=== PATIENT | male | born 1945 | race Caucasian/White ===

== ENCOUNTER 2017-02-04 10:35 | Day surgery (SDC) | payer MEDICARE, OTHER ==
[~2017-02-04 10:35] MED LIST: ACETAMINOPHEN 325 MG TABLET PO PRN; ACETYLCHOLINE CHLORIDE 20 DROP KIT IO PRN; BUPIVACAINE HCL/PF 30 ML VIAL IJ PRN; CYCLOPENTOLATE HCL 20 DROP BTL RIGHTEYE PRN; DEXTROSE 5%-0.5 NORMAL SALINE 1,000 ML IV PRN; EPINEPHrine 1 MG/ML AMPUL IO PRN; HYALURONATE SODIUM 0.4 ML DISP.SYRIN IO PRN; LIDOCAINE HCL/PF 200 MG/5 ML AMPUL TP PRN; LIDOCAINE HCL/PF 5 ML VIAL IO PRN; NORMAL SALINE 3 ML BOX IV PRN; TETRACAINE HCL 150 DROP BTL OP PRN
--- OUTSIDE RECORDS SUMMARY | 2017-02-04 10:40 | XMS REPORT | Continuity of Care Document ---
:1945 Author Organization [facility] ([facility]) [place] [address] Phone [phone] Care Team Providers Name Role Phone Unavailable Primary Care Provider Unavailable Source Comments This disclosure is being made pursuant to the Care Everywhere program, applicable federal and state laws, and may not contain all informaitonavailable regarding this patient.[facility] ([facility]) Active Allergies and Adverse Reactions Not on File Current Medications Not on file Active Problems Not on file Social History Tobacco Use Types Packs/Day Years Used Date Never Assessed Plan of Care Health Maintenance Due Date Last Done Comments HCV Screening 1945 Hepatitis B Vaccine (1 of 3 - Primary Series) 1945 Tdap Vaccine 12/19/1955 Lipid Disorder Screening 1962 Td Vaccine 1962 Colonoscopy 1994 Prostate Cancer Screening 1994 Zoster Vaccine 2004 Pneumococcal Vaccine (1 of 2 - PCV13) 2009 Influenza Vaccine: Seasonal (#1) 03/26/2016 Results from Last 3 Months Not on file
[2017-02-04] MEDS: TROPICAMIDE 150 DROP BTL RIGHTEYE PRN ×3 (11:28→12:36)
[2017-02-04] MEDS: PHENYLEPHRINE HCL 50 DROP BTL RIGHTEYE PRN ×3 (11:28→12:36)
[2017-02-04] MEDS ORDERED: RINGERS SOLUTION,LACTATED 1,000 ML IV ONE (12:30)
[2017-02-04] MEDS: HYALURONATE SODIUM 0.85 ML DISP.SYRIN IO PRN ×2 (13:58→14:10)
[2017-02-04 15:24] VITALS: BP 142/69
== END 2017-02-04 10:36 | disposition home or self-care (01) ==
LOC: AMB 10:35
PROVIDERS: ATTEND Ophthalmology
PROC: 08RJ3JZ Replacement of Right Lens with Synthetic Substitute, Percutaneous Approach (ICD-10-PCS; principal; 2017-02-04 12:05)
DX: H26.9 Unspecified cataract (principal); E11.22 Type 2 diabetes mellitus with diabetic chronic kidney disease; N18.3 Chronic kidney disease, stage 3 (moderate); J44.9 Chronic obstructive pulmonary disease, unspecified; K74.60 Unspecified cirrhosis of liver; Z87.891 Personal history of nicotine dependence; Z68.41 Body mass index [BMI] 40.0-44.9, adult

== ENCOUNTER 2017-03-04 09:29 | Day surgery (SDC) | payer MEDICARE, OTHER ==
[~2017-03-04 09:29] MED LIST changes: +CYCLOPENTOLATE HCL 20 DROP BTL LEFTEYE PRN; -CYCLOPENTOLATE HCL 20 DROP BTL RIGHTEYE PRN; +HYALURONATE SODIUM 0.85 ML DISP.SYRIN IO PRN
[2017-03-04] MEDS: PHENYLEPHRINE HCL 50 DROP BTL LEFTEYE PRN ×3 (09:58→10:33)
[2017-03-04] MEDS: TROPICAMIDE 150 DROP BTL LEFTEYE PRN ×3 (09:58→10:33)
[2017-03-04] MEDS ORDERED: RINGERS SOLUTION,LACTATED 1,000 ML IV ONE (10:10)
[2017-03-04 13:28] VITALS: BP 138/71
== END 2017-03-04 09:30 | disposition home or self-care (01) ==
LOC: AMB 09:29
PROVIDERS: ATTEND Ophthalmology
PROC: 08RK3JZ Replacement of Left Lens with Synthetic Substitute, Percutaneous Approach (ICD-10-PCS; principal; 2017-03-04 11:00)
DX: H26.9 Unspecified cataract (principal); E11.22 Type 2 diabetes mellitus with diabetic chronic kidney disease; N18.4 Chronic kidney disease, stage 4 (severe); J44.9 Chronic obstructive pulmonary disease, unspecified; K74.60 Unspecified cirrhosis of liver; Z87.891 Personal history of nicotine dependence; Z68.41 Body mass index [BMI] 40.0-44.9, adult

== ENCOUNTER 2017-06-14 08:38 | Day surgery (SDC) | payer MEDICARE, OTHER ==
[~2017-06-14 08:38] MED LIST changes: -ACETAMINOPHEN 325 MG TABLET PO PRN; -ACETYLCHOLINE CHLORIDE 20 DROP KIT IO PRN; -BUPIVACAINE HCL/PF 30 ML VIAL IJ PRN; -CYCLOPENTOLATE HCL 20 DROP BTL LEFTEYE PRN; -DEXTROSE 5%-0.5 NORMAL SALINE 1,000 ML IV PRN; -EPINEPHrine 1 MG/ML AMPUL IO PRN; -HYALURONATE SODIUM 0.4 ML DISP.SYRIN IO PRN; -HYALURONATE SODIUM 0.85 ML DISP.SYRIN IO PRN; -LIDOCAINE HCL/PF 200 MG/5 ML AMPUL TP PRN; -LIDOCAINE HCL/PF 5 ML VIAL IO PRN; -NORMAL SALINE 3 ML BOX IV PRN; +RINGER'S SOLUTION,LACTATED 1,000 ML IV PRN; -TETRACAINE HCL 150 DROP BTL OP PRN
[2017-06-14] MEDS ORDERED: RINGER'S SOLUTION,LACTATED 1,000 ML IV ONE (09:40)
--- NOTE | 2017-06-14 11:31 | OR ---
Operative Report - Dictated Report Narrative: Date: 06/14/2017 Preop dx: Screen for colon cancer Postop dx: Polyp at 60 cm Procedure: Total colonoscopy with biopsy of polyp at 60 cm with cold forceps. Staff surgeon: Percy Schmitt MD Anesthesia: MAC per TERRAZZO JOURNEYMAN EBL: minimal Specimen: polyp at 60 cm. Description: After informed consent and appropriate sedation the patient was placed in the left lateral decubitus position. A flexible fiberoptic video colonoscope was introduced and advanced under direct vision without difficulty to the cecum. The usual landmarks were identified. Preparation was fiar and excellent views were obtained. The findings were of a normal cecum, ascending colon, hepatic flexure, transverse colon, splenic flexure. A polyp at 60 cm was biopsied with cold forceps. The remainder of the polyp was destroyed with electrocautery. The sigmoid colon and rectum were normal. The mucosal color, vasculature, and texture were normal throughout. No suspicious masses were seen. The patient tolerated the procedure well without apparent complications and was discharged from the endoscopy suite in stable condition.
[2017-06-14 12:27] VITALS: BP 142/80
== END 2017-06-14 08:39 | disposition home or self-care (01) ==
LOC: AMB 08:38
PROVIDERS: ATTEND Specialist
PROC: 0D5E8ZZ Destruction of Large Intestine, Via Natural or Artificial Opening Endoscopic (ICD-10-PCS; principal; 2017-06-14 09:40)
DX: Z12.11 Encounter for screening for malignant neoplasm of colon (principal); K63.5 Polyp of colon; E11.22 Type 2 diabetes mellitus with diabetic chronic kidney disease; N18.5 Chronic kidney disease, stage 5; J44.9 Chronic obstructive pulmonary disease, unspecified; Z68.41 Body mass index [BMI] 40.0-44.9, adult; Z87.891 Personal history of nicotine dependence; Z80.0 Family history of malignant neoplasm of digestive organs

== ENCOUNTER 2017-10-24 12:01 | Inpatient (IN) | payer MEDICARE, OTHER ==
--- NOTE | 2017-10-24 12:54 | ERNOTE ---
Medical Problem HPI - Narrative Date of Service: 10/24/17 - General Chief Complaint: General Assessment Time Seen by Provider: 10/24/17 12:21 Source: patient, family Exam Limitations: dementia - Immun/Allergies/Home Medications Allergies/Adverse Reactions: Allergies No Known Allergies Allergy (Verified 10/24/17 12:08) Home Medications: HOME MEDICATIONS Furosemide [Lasix] 80 mg PO DAILY 05/21/16 [Last Taken Unknown] Glimepiride [Amaryl] 1 mg PO DAILY 05/21/16 [Last Taken Unknown] Propranolol HCl 40 mg PO BID 05/21/16 [Last Taken 02/04/17 08:00] Spironolactone [Aldactone] 100 mg PO DAILY 05/21/16 [Last Taken Unknown] Albuterol Sulfate 2.5 mg IH QID 05/23/16 [Last Taken Unknown] Albuterol Sulfate [Proair Hfa] 1 puff IH Q4H PRN 02/01/17 [Last Taken Unknown] Blood-Glucose Meter [Blood Glucose Monitoring] 1 each MC DAILY 02/01/17 [Last Taken Unknown] Potassium Chloride [Klor-Con M20] 20 meq PO DAILY 02/01/17 [Last Taken Unknown] Sorafenib Tosylate [Nexavar] 200 mg PO BID 10/24/17 [Last Taken Unknown] - History of Present History Narrative: Pt. comes in with three week history of SOB, cough, and clear sputum. Pt. states that he went to his PCP two weeks ago and was started on abx without relief. Pt. does state that he has had increase in swelling recently as well. Pt. has some short term memory loss so he is a poor istorian and he is also undergoing treatment for liver cancer. Timing: getting worse Severity: moderate Modifying Factors - (Improves): Present: other - denies Modifying Factors - (Worsens): Present: other - denies Review of Systems - Review of Systems Constitutional: Present: weakness, fatigue, malaise. Absent: fever, chills, decreased activity level EYE: Present: no symptoms reported ENT: Present: no symptoms reported. Absent: nose congestion, nasal drainage, throat swelling Respiratory: Present: shortness of breath, cough, wheezing Cardiology: Present: chest pain - mid chest to R side inc R shoulder, edema - BLE. Absent: palpitations Gastrointestinal/Abdominal: Present: abdominal pain - RUQ normal for pt.. Absent: nausea, vomiting, diarrhea Genitourinary: Present: no symptoms reported. Absent: frequency, decreased urinary output Musculoskeletal: Present: no symptoms reported. Absent: back pain, neck pain, joint pain Skin: Present: no symptoms reported. Absent: rash, change in hair/nails Neurological: Present: no symptoms reported. Absent: headache, dizziness/light- headedness, numbness, tingling All Other Systems: All systems neg except as marked - Patient's Past Medical History Patient History - Medical: Diabetes Type 2, Other - Liver CA Patient History - Cardiac/Respiratory: COPD, Other Patient History - Cancer: Liver, Skin Patient History - Surgical Procedures: Cataracts, Colonoscopy, Other Patient History - Other: Chronic Steroid Therapy - Family History Mother Family History - Medical: , No pertinent hx Family History - Cardiac/Respiratory: No pertinent hx Family History - Cancer: Lung Father Family History - Medical: , No pertinent hx Family History - Cardiac/Respiratory: Myocardial Infarction Family History - Cancer: No pertinent family hx Brother Family History - Medical: , No pertinent hx Family History - Cardiac/Respiratory: Aneurysm Family History - Cancer: No pertinent family hx Sister Family History - Medical: , No pertinent hx Family History - Cardiac/Respiratory: No pertinent hx Family History - Cancer: Brain - Social History Living Situations: home Abuse History: No History of abuse Psych History: No pertinent hx Alcohol Use: none Drug Use: none Physical Exam - Physical Exam General Appearance: Present: wd/wn, alert, no apparent distress Head Exam: Present: normal inspection, no evidence of injury, no tenderness w palpation Eye Exam: Normal inspection: bilateral Ears, Nose, Throat: Present: normal ENT inspection, normal pharynx Neck: Present: normal inspection, nontender, supple, full range of motion. Absent: lymphadenopathy (R), lymphadenopathy (L) Respiratory: Present: no respiratory distress, decreased breath sounds, crackles - fine R lung LLL coarse FERNY Cardiovascular/Chest: Present: regular rate, rhythm, systolic murmur - aortic holosystolic Gastrointestinal/Abdominal: Present: no organomegaly, tenderness - RUQ, abnormal bowel sounds - rare, distended, hepatomegaly. Absent: guarding, rebound, mass Back Exam: Present: normal inspection, normal range of motion, no CVA tenderness , no vertebral tenderness Extremity Exam: Present: normal inspection, non-tender, normal range of motion, extremity edema - +4 pitting BLE to thighs Neurological Exam: Present: alert, oriented, normal mood/affect, no motor/ sensory deficits, other - STML mild Skin Exam: Present: warm/dry, jaundice, pallor. Absent: skin rash ED Progress - Date and Time Seen: Date and Time: 10/24/17 13:[address] Arias, he agrees to admit for obs. - Results and Orders Patient's Lab Results:: I have reviewed the patient's lab results. - Vital Signs Patient's Vital Signs:: I have reviewed the patient's vital signs. Vital Signs: Vital Signs 10/24/17 12:04 Temperature 36.0 C L Pulse Rate 79 Respiratory 12 Rate Blood Pressure 140/82 O2 Sat by Pulse 93 Oximetry - EKG EKG: LVH, other - SR with L axis deviation no acute ST abnormality EKG read: Interp. by me - X-Ray X-Ray #1 X-Ray: chest Interpretation: Reviewed by me X-ray Comments: Chest PA Lateral * Hypoinflated lung volumes. Bibasilar opacities noted. No significant vascular congestion suggested. No pneumothorax or pleural fluid collections. Mild enlargement of the cardiac silhouette noted. Mild tortuosity of the thoracic aorta noted, with overlying atherosclerotic vascular calcifications. Overall stable. Trachea is in normal position. Bones show degenerative changes of the spine. IMPRESSION: 1. Hypoinflated lungs with bibasilar opacities, most likely atelectasis although multifocal pneumonia should be considered. 2. Recommend follow-up radiographic evaluation in 6-8 weeks to document resolution, as potential nodule/neoplasm cannot be entirely ruled out. 3. Additional comments are as above. Electronically signed by Lele Schwab M.D.. Lele Schwab MD - Progress/Reassessment Chief Complaint: General Assessment Departure Clinical Impression: Hepatic encephalopathy, Multifocal pneumonia, Renal insufficiency CHF (congestive heart failure) Qualifiers: Congestive heart failure type: unspecified Congestive heart failure chronicity : acute on chronic Qualified Code(s): I50.9 - Heart failure, unspecified Liver malignancy Qualifiers: Liver malignancy type: unspecified liver malignancy Qualified Code(s): C22.9 - Malignant neoplasm of liver, not specified as primary or secondary Liver failure Qualifiers: Liver failure chronicity: acute Hepatic coma status: without hepatic coma Qualified Code(s): K72.00 - Acute and subacute hepatic failure without coma - Departure Disposition: Still a patient Condition: Serious
[2017-10-24 13:14] LABS: Hematocrit 46.5 % (42.0-52.0); Hemoglobin 16.5 gm/dL (13.5-18.0); Mean Cell Volume 94.5 fl (78-100); Mean Corpuscular Hemoglobin 33.5 pg (27-31); Mean Corpuscular Hgb Conc 35.5 g/dl (32-36); Mean Platelet Volume 11.1 fl (6.0-9.5); Neutrophil % 76.8 % (42-75.0); Platelet Count 197 K/mm3 (150-450); Red Blood Count 4.92 M/mm3 (4.7-6.0); White Blood Count 13.1 K/mm3 (4.0-10.5)
[2017-10-24 13:25] LABS: ALT 221 U/L (19-67); AST 343 U/L (0-48); Alkaline Phosphatase * 601 U/L (50-170); Anion Gap 16.2 mmol/L (6.8-13.8); BNP * 1233 pg/mL (5-350); BUN/Creatinine Ratio 24.8 (9.0-21.6); Bilirubin, Total 2.2 mg/dL (0.0-1.1); Blood Urea Nitrogen 37 mg/dL (6-23); Ca. Corrected For Albumin 11.2 mg/dL (8.4-10.2); Calcium * 9.9 mg/dL (7.9-10.9); Carbon Dioxide 26.6 mmol/L (24-32.6); Chloride 98 mmol/L (97-106); Glucose * 134 mg/dL (70-110); Magnesium 1.7 mg/dL (1.2-2.8); Phosphorus 3.3 mg/dL (2.2-4.2); Potassium 4.8 mmol/L (3.4-4.6); Sodium 136 mmol/L (132-142); Total Protein 8.5 gm/dL (6.2-8.2)
[2017-10-24 13:26] LABS: Troponin I Less than 0.017 ng/ml (0.00-0.10)
[2017-10-24] MEDS ORDERED: FUROSEMIDE 10 MG/ML VIAL IV ONE (13:29)
[2017-10-24] MEDS ORDERED: AZITHROMYCIN 250 MG TABLET PO ONE (13:32)
[2017-10-24] MEDS ORDERED: FUROSEMIDE 10 MG/ML VIAL ONE (13:42)
[2017-10-24] MEDS ORDERED: AZITHROMYCIN 250 MG TABLET ONE (13:42)
[2017-10-24] MEDS ORDERED: ONDANSETRON HCL/PF 2 MG/ML VIAL IV ONE (13:51)
[2017-10-24] MEDS ORDERED: MORPHINE SULFATE 2 MG/ML DISP.SYRIN IV ONE (13:51)
[2017-10-24] MEDS ORDERED: ONDANSETRON HCL/PF 2 MG/ML VIAL ONE (13:53)
[2017-10-24] MEDS ORDERED: MORPHINE SULFATE 2 MG/ML DISP.SYRIN ONE (13:53)
[2017-10-24] MEDS ORDERED: LACTULOSE 10 G/15 ML BTL PO ONE (14:00)
[2017-10-24] MEDS: LEVOFLOXACIN IN DEXTROSE 5 % 750 MG/150 ML BAG IV SCH (15:48)
[2017-10-24] MEDS ORDERED: ALBUTEROL SULFATE 2.5 MG/0.5 ML VIAL.NEB IH PRN (18:25)
[2017-10-24] MEDS ORDERED: ALBUTEROL SULFATE/IPRATROPIUM 3 ML NEBU IH SCH (18:30)
[2017-10-24] MEDS: ALBUTEROL SULFATE/IPRATROPIUM 3 ML NEBU IH SCH (19:09)
--- NOTE | 2017-10-24 19:56 | PN ---
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 Patient has difficulty in lying back. CXR shows hyperinflation of the lungs and basilar opacities c/w atelectasis/pneumonia. WBC 13.1, BUN/CR 37/1.49, AST 343, ALT 222, ALK PHOS 601 TB 2.2. Patient admitted with a diagnosis of possible pneumonia and her lung exam was basically clear with diminished breath sounds at the bases. D/D: Includes possible extension of liver cancer. Full H&P to be done by Cody Barboza REGULATOR PIN INSERTER[hospitalist].
[2017-10-24] MEDS: oxyCODONE HCL 5 MG TABLET PO PRN (20:30)
[2017-10-24] MEDS: LACTULOSE 10 G/15 ML BTL PO SCH (20:34)
--- NOTE | 2017-10-24 20:52 | HP ---
Chief Complaint - Chief Complaint Date of Service: 10/24/17 Time of Service: 20:52 Chief Complaint: Abdominal pain, liver cancer History of Present Illness: 71 years old white male adm to the hospital with reports of abdominal pain, cough and shortness of breath. PMH significant for Diabetes, morbid obesity,COPD , and Hepatocellular carcinoma Seen on 06/27/17 CT ABD: numerous small nodules and ill defined vague hypodensities within a nodular and coarse appearing liver with metastic disease or multifocal HCC is not excluded. Cirrhosis secondary to alcohol abuse and HORTON. pt is a poor historian and information obtained from his . Per pt he has been having cough, abdominal pain and shortness of breath that has gotten progressively worst over the past 2-3 days. He has much difficulty laying back and have been even siting up sleeping. CXR:shows hyperinflation of the lungs and basilar opacities , most likely atelectasis vs pneumonia.F/U 6-8 weeks as potential nodule/neoplasm cannot be entirely rules out. In ER WBC 13.1, Bun/Cre 37/1.49 which is around baseline on previous lab Bun/cre 36/1.68, AST/ALT 90/68 respectively on this adm AST 343, ALT 222, ALK PHOS 601 TB 2.2.Patient admitted with a diagnosis of possible pneumonia and his lung exam was basically clear with diminished breath sounds at the bases. D/ D: Includes possible extension of liver cancer. - Patient's Past Medical History Patient History - Medical: Diabetes Type 2, Liver Disease - cirrhosis, Renal Disease - CKD stage IV, Patient History - Cardiac/Respiratory: COPD, Hypertension Patient History - Cancer: Liver - hepatocellular carcinoma, Skin Patient History - Surgical Procedures: Cataracts, Colonoscopy, Other, Orthopedic - Knee arthroscopy, shoulder rotator cuff repair Patient History - Other: None - Family History Mother Family History - Medical: , No pertinent hx Family History - Cardiac/Respiratory: No pertinent hx Family History - Cancer: Lung Father Family History - Medical: , No pertinent hx Family History - Cardiac/Respiratory: Myocardial Infarction Family History - Cancer: No pertinent family hx Brother Family History - Medical: , No pertinent hx Family History - Cardiac/Respiratory: Aneurysm, Myocardial Infarction Family History - Cancer: No pertinent family hx Sister Family History - Medical: , No pertinent hx Family History - Cardiac/Respiratory: No pertinent hx Family History - Cancer: Brain - Social History Living Situations: spouse Abuse History: No History of abuse Psych History: No pertinent hx Smoking Status: Former smoker Have you smoked in the past 12 months: No Alcohol Use: other Drug Use: none Review Of Systems (GEN) - Review of Systems Generalized/Overall Review: Present: Weakness EENTM: Present: No Symptoms Reported Respiratory: Present: Cough, Shortness of Breath Cardiac: Present: Edema Abdominal: Present: Abdominal Pain Genitourinary: Present: No Symptoms Reported Musculoskeletal: Present: No Symptoms Reported Neurological: Present: Weakness Skin: Present: Dryness Endocrine: Present: No Symptoms Reported Allergies/Adverse Reactions: Allergies Allergy/AdvReac Type Severity Reaction Status Date / Time No Known Allergies Allergy Verified 10/24/17 16:42 Home Medications: HOME MEDICATIONS Furosemide [Lasix] 80 mg PO DAILY 05/21/16 [Last Taken 10/24/17] Glimepiride [Amaryl] 1 mg PO DAILY 05/21/16 [Last Taken 10/24/17] Propranolol HCl 40 mg PO BID 05/21/16 [Last Taken 10/24/17] Spironolactone [Aldactone] 100 mg PO DAILY 05/21/16 [Last Taken 10/24/17] Albuterol Sulfate 2.5 mg IH QID 05/23/16 [Last Taken 10/24/17] Albuterol Sulfate [Proair Hfa] 1 puff IH Q4H PRN 02/01/17 [Last Taken 10/24/17] Blood-Glucose Meter [Blood Glucose Monitoring] 1 each MC DAILY 02/01/17 [Last Taken Unknown] Aspirin [Aspirin EC] 81 mg PO HS 10/24/17 [Last Taken 10/23/17] Potassium Stabalizer 10 mg PO DAILY 10/24/17 [Last Taken 10/24/17] Sorafenib Tosylate [Nexavar] 200 mg PO BID 10/24/17 [Last Taken 10/24/17] Exam - Exam Vital Signs: Vital Signs - Last Taken Temp 36.4 C L 10/24/17 18:43 Pulse 71 10/24/17 19:18 Resp 18 10/24/17 19:18 BP 160/83 10/24/17 18:43 Pulse Ox 92 10/24/17 19:09 Constitutional: Present: Alert, Cooperative, No distress, Looks Older than stated age ENT Exam: Present: hard of hearing Eye Exam: bilateral eye: normal inspection Neck: Present: full range of motion Back Exam: Present: normal inspection Breasts: Present: Exam deferred Respiratory: Present: chest non-tender, no accessory muscle use, decreased breath sounds, rhonchi, wheezing Cardiovascular/Chest: Present: normal peripheral pulses, regular rate, rhythm, no chest tenderness, no gallop, no JVD, edema Peripheral Pulses: dorsalis-pedis (R): 2+, dorsalis-pedis (L): 2+ Abdomen: Present: soft, no rebound tenderness, distended, hypoactive /Rectal: Present: Exam deferred Extremity: Present: non-tender, no calf tenderness, lower extremity edema, pedal edema, slow capillary refill, swelling Skin Exam: Present: normal color, warm/dry Neurologic: Present: oriented x 3 Appearance: Present: disheveled, impaired insight, impaired recent memory Eye contact: Present: good eye contact, normal speech Thoughts: Present: no apparent hallucination Diagnostic Studies: Laboratory Results WBC 13.1 K/mm3 (4.0-10.5) H 10/24/17 12:57 RBC 4.92 M/mm3 (4.7-6.0) 10/24/17 12:57 Hgb 16.5 gm/dL (13.5-18.0) 10/24/17 12:57 Hct 46.5 % (42.0-52.0) 10/24/17 12:57 MCV 94.5 fl (78-100) 10/24/17 12:57 MCH 33.5 pg (27-31) H 10/24/17 12:57 MCHC 35.5 g/dl (32-36) 10/24/17 12:57 RDW 16.0 % (11.5-14.0) H 10/24/17 12:57 Plt Count 197 K/mm3 (150-450) 10/24/17 12:57 MPV 11.1 fl (6.0-9.5) H 10/24/17 12:57 Immature Gran % (Auto) 0.50 % (0.001-0.429) H 10/24/17 12:57 Immature Gran # (Auto) 0.07 K/mm3 (0.000-0.0310) H 10/24/17 12:57 Neutrophils % 76.8 % (42-75.0) H 10/24/17 12:57 Lymphocytes % 12.6 % (20-51) L 10/24/17 12:57 Monocytes % 9.2 % (0.0-9) H 10/24/17 12:57 Eosinophils % 0.5 % (0.0-3.0) 10/24/17 12:57 Basophils % 0.4 % (0.0-1.0) 10/24/17 12:57 Nucleated RBC % 0.0 k/mm3 (0-1) 10/24/17 12:57 Neutrophils # 10.0 K/mm3 (1.3-6.0) H 10/24/17 12:57 Lymphocytes # 1.7 k/mm3 (1.5-3.5) 10/24/17 12:57 Monocytes # 1.2 k/mm3 (0.0-1.0) H 10/24/17 12:57 Eosinophils # 0.1 k/mm3 (0.0-0.7) 10/24/17 12:57 Absolute Basophils 0.1 k/mm3 (0.0-0.1) 10/24/17 12:57 Sodium 136 mmol/L (132-142) 10/24/17 12:57 Plasma Sodium 137 mmol/L (130-142) 10/24/17 12:57 Potassium 4.8 mmol/L (3.4-4.6) H 10/24/17 12:57 Chloride 98 mmol/L (97-106) 10/24/17 12:57 Carbon Dioxide 26.6 mmol/L (24-32.6) 10/24/17 12:57 Anion Gap 16.2 mmol/L (6.8-13.8) H 10/24/17 12:57 BUN 37 mg/dL (6-23) H 10/24/17 12:57 Creatinine 1.49 mg/dL (0.4-1.4) H 10/24/17 12:57 Est GFR (Non-Af Amer) 49 mL/min (60-130) L 10/24/17 12:57 BUN/Creatinine Ratio 24.8 (9.0-21.6) H 10/24/17 12:57 Random Glucose 134 mg/dL (70-110) H 10/24/17 12:57 Calcium 9.9 mg/dL (7.9-10.9) 10/24/17 12:57 Calcium Adj for Albumin 11.2 mg/dL (8.4-10.2) H 10/24/17 12:57 Phosphorus 3.3 mg/dL (2.2-4.2) 10/24/17 12:57 Magnesium 1.7 mg/dL (1.2-2.8) 10/24/17 12:57 Total Bilirubin 2.2 mg/dL (0.0-1.1) H 10/24/17 12:57 AST 343 U/L (0-48) H 10/24/17 12:57 ALT 221 U/L (19-67) H 10/24/17 12:57 Alkaline Phosphatase 601 U/L (50-170) H 10/24/17 12:57 Ammonia 64.0 mcmol/L (11-35) H 10/24/17 12:57 Troponin I Less than 0.017 ng/ml (0.00-0.10) 10/24/17 12:57 B-Natriuretic Peptide 1233 pg/mL (5-350) H 10/24/17 12:57 Total Protein 8.5 gm/dL (6.2-8.2) H 10/24/17 12:57 Albumin 2.0 gm/dl (3.4-5.0) L 10/24/17 12:57 Influenza Type A Ag Negative (NEGATIVE) 10/24/17 12:54 Influenza Type B Ag Negative (NEGATIVE) 10/24/17 12:54 CXR: Hypoinflated lungs with bibasilar opacities, most likely atelectasis although multifocal pneumonia should be considered. F/U 6-8 weeks as potential nodule/neoplasm cannot be entirely rules out. Assessment/Plan - Narrative Narrative: ? Pneumonia CXR:Hypoinflated lungs with bibasilar opacities, most likely atelectasis although multifocal pneumonia should be considered. F/U 6-8 weeks as potential nodule/neoplasm cannot be entirely rules out. pt with history of liver cancer possible due the distended abdomen pushing up on the lung or an extension of his liver cancer. Continue renal dose of Levaquin 750mg Q48hr continue with neb treatment influenza A & B negative On adm WBC 13.1 Procalcitonin, Pneumonia and legionella pending Hepatocellular carcinoma (HCC) Pt is been followed by cyber transport systems specialist/ oncologist in [place] Continue with home dose of Nexavar 200mg, pt may take his own medication Cirrhosis of the Liver On adm ALT/AST---> 221/343, pt LFT have been abnormal since 01/2017 Total bili 2.2, Ammonia 64 and will continue to monitor Lactulose 30mg x1 given in the ER, will continue with home dose Lasix 20mg x1 given in ER Continue with home dose of Inderal 40mg BID and Aldactone 100mg daily. CHF Bilateral LE +4 pitting edema from foot up to thigh BNP 1233 Lasix 20mg x1 given in ER CKD stage IV on adm Bun/Cre 37/1.49 on previous labs Bun/Cre 36/1.68 Code status:DNR VTE ppx:SCd and ambulate with assist Time 48 minutes and case discussed with Dr Baeza - Assessment/Plan (1) Hepatic encephalopathy Problem: Chronic (2) Liver failure Problem: Acute Qualifiers: Liver failure chronicity: acute Hepatic coma status: without hepatic coma Qualified Code(s): K72.00 - Acute and subacute hepatic failure without coma (3) Liver malignancy Problem: Chronic Qualifiers: Liver malignancy type: unspecified liver malignancy Qualified Code(s): C22.9 - Malignant neoplasm of liver, not specified as primary or secondary (4) Multifocal pneumonia Problem: Acute (5) Renal insufficiency Problem: Acute (6) CKD (chronic kidney disease) Problem: Chronic
[2017-10-24] MEDS ORDERED: NEXAVAR 200 MG PO SCH (21:00)
[2017-10-24] MEDS ORDERED: SORAFENIB TOSYLATE 200 MG PO SCH (21:00)
[2017-10-24] MEDS: PROPRANOLOL HCL 20 MG TABLET PO SCH (21:49)
[2017-10-25] MEDS: oxyCODONE HCL 5 MG TABLET PO PRN ×6 (00:34→23:41)
[2017-10-25 05:15] LABS: Prothrombin Time (Patient) 11.2 Seconds (9.0-11.0)
[2017-10-25 05:18] LABS: INR 1.12 INR (0.90-1.10)
[2017-10-25 05:25] LABS: Albumin * 1.9 gm/dl (3.4-5.0); Anion Gap 11.5 mmol/L (6.8-13.8); BUN/Creatinine Ratio 23.5 (9.0-21.6); Bilirubin, Total 2.1 mg/dL (0.0-1.1); Ca. Corrected For Albumin 10.9 mg/dL (8.4-10.2); Calcium * 9.5 mg/dL (7.9-10.9); Carbon Dioxide 30.7 mmol/L (24-32.6); Potassium 5.2 mmol/L (3.4-4.6); Total Protein 8.5 gm/dL (6.2-8.2)
[2017-10-25] MEDS: ALBUTEROL SULFATE/IPRATROPIUM 3 ML NEBU IH SCH ×4 (06:35→19:16)
[2017-10-25] MEDS: LACTULOSE 10 G/15 ML BTL PO SCH ×3 (08:44→17:45)
[2017-10-25] MEDS: PROPRANOLOL HCL 20 MG TABLET PO SCH ×2 (08:47→20:37)
[2017-10-25] MEDS ORDERED: FUROSEMIDE 20 MG TABLET PO SCH (09:00)
[2017-10-25] MEDS: SORAFENIB TOSYLATE 200 MG PO SCH ×2 (10:19→19:26)
[2017-10-25] MEDS: ONDANSETRON HCL/PF 2 MG/ML VIAL IV PRN ×2 (10:22→17:48)
[2017-10-25] MEDS ORDERED: SPIRONOLACTONE 100 MG TABLET PO SCH (11:00)
[2017-10-25] MEDS: NORMAL SALINE 1,000 ML IV PRN ×2 (11:16→21:38)
[2017-10-25] MEDS: ENOXAPARIN SODIUM 40 MG/0.4 ML SYRG SC SCH (14:59)
--- NOTE | 2017-10-25 22:11 | PN ---
Subjective - Date and Time Seen Date: 10/25/17 Time: 22:10 Subjective Narrative: Patient was seen no acute distress, reports nausea. Objective - Review of Systems Generalized/Overall Review: Reports: No Symptoms Reported EENTM: Reports: No Symptoms Reported Respiratory: Reports: Cough Cardiac: Reports: No Symptoms Reported Abdominal: Reports: Nausea Genitourinary Symptoms: Reports: No Symptoms Reported Musculoskeletal Complaints: Reports: No Symptoms Reported Neurological: Reports: No Symptoms Reported Skin: Reports: No Symptoms Reported Endocrine: Reports: No Symptoms Reported - Vitals Vitals: Last Vital Signs Temp 37 C 10/25/17 18:00 Pulse 89 10/25/17 20:37 Resp 18 10/25/17 19:26 BP 148/75 10/25/17 20:37 Pulse Ox 92 10/25/17 18:00 - Abnormal Lab Findings Abnormal Lab Findings: Abnormal Lab Results 10/25/17 10/25/17 10/25/17 Range/Units 02:59 05:03 05:03 PT 11.2 H (9.0-11.0) Seconds INR (Anticoag Therapy) 1.12 H (0.90-1.10) INR Potassium 5.2 H (3.4-4.6) mmol/L BUN 43 H (6-23) mg/dL Creatinine 1.83 H (0.4-1.4) mg/dL Est GFR (Non-Af Amer) 39 L D (60-130) mL/min BUN/Creatinine Ratio 23.5 H (9.0-21.6) Random Glucose 128 H (70-110) mg/dL Calcium Adj for Albumin 10.9 H (8.4-10.2) mg/dL Total Bilirubin 2.1 H (0.0-1.1) mg/dL AST 533 H (0-48) U/L ALT 280 H (19-67) U/L Alkaline Phosphatase 556 H (50-170) U/L Total Protein 8.5 H (6.2-8.2) gm/dL Albumin 1.9 L (3.4-5.0) gm/dl Procalcitonin 0.96 H (0.05-0.50) ng/mL - Exam Constitutional: Present: Cooperative, No distress, Morbidly obese ENT Exam: Present: hard of hearing Neck: Present: full range of motion Respiratory: Present: chest non-tender, no respiratory distress, no accessory muscle use, rhonchi Cardiovascular/Chest: Present: normal peripheral pulses, regular rate, rhythm, no chest tenderness Abdomen: Present: Normal bowel sounds, soft, nontender, negative Balderas sign, distended Extremity: Present: normal range of motion, non-tender, normal inspection, no calf tenderness, lower extremity edema, slow capillary refill, swelling Skin Exam: Present: warm/dry Neurologic: Present: alert, normal mood/affect Appearance: Present: disheveled, impaired insight Eye contact: Present: cooperative Thoughts: Present: no apparent hallucination Assessment/Plan Plan Narrative: Cirrhosis of the Liver On adm ALT/AST---> 221/343, since adm it has increased significantly AST/ALT/ Alk Phos--->533/280/556 respectively. pt LFT have been abnormal since 01/2017 Total bili 2.2, Ammonia 64 --->17 Lactulose 20mg TID Continue with home dose of Inderal 40mg BID and Aldactone 100mg daily. CHF Swelling improving Bilateral LE +4 pitting edema from foot up to thigh BNP 1233 Lasix 20mg x1 given in ER Pneumonia CXR:Hypoinflated lungs with bibasilar opacities, most likely atelectasis although multifocal pneumonia should be considered. F/U 6-8 weeks as potential nodule/neoplasm cannot be entirely rules out. pt with history of liver cancer possible due the distended abdomen pushing up on the lung or an extension of his liver cancer. Continue renal dose of Levaquin 750mg Q48hr continue with neb treatment influenza A & B negative WBC 13.1--->11.7 Procalcitonin 0.96 Pneumonia and legionella pending Hepatocellular carcinoma (HCC) Pt is been followed by comic book designer/ oncologist in [place] Dr Baeza spoke with Dr. gibson and Stop home dose of Nexavar 200mg Zofran for nausea CKD stage IV on adm Bun/Cre 37/1.49 on previous labs Bun/Cre 36/1.68--->43/1.83 NS @ 100ml/hr Code status:DNR VTE ppx:SCd and ambulate with assist Time 20 minutes and case discussed with Dr Baeza - Problems/Diagnosis (1) Hepatic encephalopathy Problem: Chronic (2) Liver failure Problem: Acute Qualifiers: Liver failure chronicity: acute Hepatic coma status: without hepatic coma Qualified Code(s): K72.00 - Acute and subacute hepatic failure without coma (3) Liver malignancy Problem: Chronic Qualifiers: Liver malignancy type: unspecified liver malignancy Qualified Code(s): C22.9 - Malignant neoplasm of liver, not specified as primary or secondary (4) Multifocal pneumonia Problem: Acute (5) Renal insufficiency Problem: Acute (6) CKD (chronic kidney disease) Problem: Chronic
[2017-10-26] MEDS: oxyCODONE HCL 5 MG TABLET PO PRN ×5 (03:48→21:37)
[2017-10-26 05:43] LABS: Hematocrit 44.9 % (42.0-52.0); Hemoglobin 15.4 gm/dL (13.5-18.0); Mean Cell Volume 97.6 fl (78-100); Mean Corpuscular Hemoglobin 33.5 pg (27-31); Mean Corpuscular Hgb Conc 34.3 g/dl (32-36); Neutrophil # 9.9 K/mm3 (1.3-6.0); Platelet Count 201 K/mm3 (150-450); Red Cell Distribution Width 16.2 % (11.5-14.0); White Blood Count 11.7 K/mm3 (4.0-10.5)
[2017-10-26 06:07] LABS: Albumin * 1.8 gm/dl (3.4-5.0); Anion Gap 14.1 mmol/L (6.8-13.8); BUN/Creatinine Ratio 23.8 (9.0-21.6); Bilirubin, Total 2.3 mg/dL (0.0-1.1); Ca. Corrected For Albumin 10.9 mg/dL (8.4-10.2); Calcium * 9.5 mg/dL (7.9-10.9); Carbon Dioxide 26.6 mmol/L (24-32.6); Potassium 4.7 mmol/L (3.4-4.6); Total Protein 8.4 gm/dL (6.2-8.2)
[2017-10-26] MEDS: ALBUTEROL SULFATE/IPRATROPIUM 3 ML NEBU IH SCH ×4 (06:12→18:34)
--- NOTE | 2017-10-26 07:42 | PN ---
Subjective - Date and Time Seen Date: 10/26/17 Time: 07:27 Subjective Narrative: patient was seen today stated he wasn't feeling any better than he did upon adm. He report abdominal pain, denies Nausea, shortness of breath,chest pain, cough or fever. pt stated he don't have the urge to void but when he goes to the bathroom her urinate. He voided 3 times last night and thinks the swelling in his legs are improving. Objective - Review of Systems Generalized/Overall Review: Reports: Weakness, Malaise EENTM: Reports: No Symptoms Reported Respiratory: Reports: No Symptoms Reported Cardiac: Reports: No Symptoms Reported Abdominal: Reports: Abdominal Pain Genitourinary Symptoms: Reports: No Symptoms Reported Musculoskeletal Complaints: Reports: No Symptoms Reported Neurological: Reports: No Symptoms Reported Skin: Reports: Dryness, Bruising - Vitals Vitals: Last Vital Signs Temp 36.7 C 10/26/17 00:43 Pulse 80 10/26/17 06:22 Resp 20 10/26/17 06:22 BP 150/70 10/26/17 00:43 Pulse Ox 93 10/26/17 06:12 - Abnormal Lab Findings Abnormal Lab Findings: Abnormal Lab Results Laboratory Tests 10/24/17 10/24/17 10/25/17 12:57 12:57 05:03 WBC 13.1 H RBC 4.92 Hgb 16.5 Hct 46.5 MCV 94.5 Plt Count 197 Neutrophils % 76.8 H Sodium 136 134 Plasma Sodium 137 134 Potassium 4.8 H 5.2 H Anion Gap 16.2 H 11.5 BUN 37 H 43 H Creatinine 1.49 H 1.83 H Est GFR (Non-Af Amer) 49 L 39 L D BUN/Creatinine Ratio 24.8 H 23.5 H Random Glucose 134 H 128 H Total Bilirubin 2.2 H 2.1 H AST 343 H 533 H ALT 221 H 280 H Alkaline Phosphatase 601 H 556 H 10/26/17 05:10 WBC 11.7 H RBC 4.60 L Hgb 15.4 Hct 44.9 MCV 97.6 Plt Count 201 Neutrophils % 84.0 H Sodium 135 Plasma Sodium 136 Potassium 4.7 H Anion Gap 14.1 H BUN 54 H Creatinine 2.27 H D Est GFR (Non-Af Amer) 30 L D BUN/Creatinine Ratio 23.8 H Random Glucose 145 H Total Bilirubin 2.3 H AST 662 H ALT 404 H Alkaline Phosphatase 518 H - Exam Constitutional: Present: Alert, Cooperative, No distress, Elderly, Morbidly obese ENT Exam: Present: hard of hearing Neck: Present: full range of motion Breasts: Present: Exam deferred Respiratory: Present: chest non-tender, no respiratory distress, decreased breath sounds Cardiovascular/Chest: Present: normal peripheral pulses, no chest tenderness, edema Abdomen: Present: Normal bowel sounds, soft, nondistended, tender, distended /Rectal: Present: Exam deferred Extremity: Present: normal range of motion, no calf tenderness, lower extremity edema, slow capillary refill, swelling Skin Exam: Present: warm/dry Neurologic: Present: normal mood/affect, oriented x 3 Appearance: Present: appropriate appearance, impaired recent memory Eye contact: Present: cooperative, good eye contact Thoughts: Present: no apparent hallucination Assessment/Plan Plan Narrative: CKD stage IV on adm Bun/Cre 37/1.49 on previous labs Bun/Cre 36/1.68--->43/1.83 NS @ 100ml/hr despite IVF rehydration Bun/Cre 54/2.27 increased significantly from baseline. possible due to the Lasix 60mg that was given yesterday Cirrhosis of the Liver On adm ALT/AST---> 221/343, since adm it has increased significantly AST/ALT/ Alk Phos--->533/280/556 respectively. 10/26/17 LFT continue to increased AST/ALT 662/404 pt LFT have been abnormal since 01/2017 Total bili 2.2---->2.3, Ammonia 64 --->17 resolved stop Lactulose 20mg TID Continue with home dose of Inderal 40mg BID and Aldactone 100mg daily. Pneumonia CXR:Hypoinflated lungs with bibasilar opacities, most likely atelectasis although multifocal pneumonia should be considered. F/U 6-8 weeks as potential nodule/neoplasm cannot be entirely rules out. pt with history of liver cancer possible due the distended abdomen pushing up on the lung or an extension of his liver cancer. Continue renal dose of Levaquin 750mg Q48hr continue with neb treatment influenza A & B negative WBC 13.1--->11.7 Procalcitonin 0.96 Pneumonia and legionella pending Hepatocellular carcinoma (HCC) Pt is been followed by medical assistant cardiology/ oncologist in [place] Dr Baeza spoke with Dr. gibson and Stop home dose of Nexavar 200mg Zofran for nausea CHF Slight Swelling improving Bilateral LE +4 pitting edema from foot up to thigh BNP 1233 Lasix 20mg x1 given in ER, he was continued on Lasix 60mg until yesterday when it was discontinued Code status:DNR VTE ppx:SCd and ambulate with assist Time 20 minutes and case discussed with Dr Baeza - Problems/Diagnosis (1) Hepatic encephalopathy Problem: Chronic (2) Liver failure Problem: Acute Qualifiers: Liver failure chronicity: acute Hepatic coma status: without hepatic coma Qualified Code(s): K72.00 - Acute and subacute hepatic failure without coma (3) Liver malignancy Problem: Chronic Qualifiers: Liver malignancy type: unspecified liver malignancy Qualified Code(s): C22.9 - Malignant neoplasm of liver, not specified as primary or secondary (4) Multifocal pneumonia Problem: Acute (5) Renal insufficiency Problem: Acute (6) CKD (chronic kidney disease) Problem: Chronic
[2017-10-26] MEDS: NORMAL SALINE 1,000 ML IV PRN ×2 (07:48→19:33)
[2017-10-26] MEDS: PROPRANOLOL HCL 20 MG TABLET PO SCH ×2 (08:31→21:38)
[2017-10-26] MEDS: LACTULOSE 10 G/15 ML BTL PO SCH (08:32)
[2017-10-26] MEDS: ONDANSETRON HCL/PF 2 MG/ML VIAL IV PRN ×2 (15:03→19:37)
[2017-10-26] MEDS: LEVOFLOXACIN IN DEXTROSE 5 % 750 MG/150 ML BAG IV SCH (15:05)
[2017-10-26] MEDS: ENOXAPARIN SODIUM 40 MG/0.4 ML SYRG SC SCH (15:07)
[2017-10-27] MEDS: oxyCODONE HCL 5 MG TABLET PO PRN ×2 (02:54→09:59)
[2017-10-27] MEDS: NORMAL SALINE 1,000 ML IV PRN (05:10)
[2017-10-27] MEDS: ONDANSETRON HCL/PF 2 MG/ML VIAL IV PRN ×4 (05:27→23:37)
[2017-10-27 05:29] LABS: Hematocrit 45.2 % (42.0-52.0); Hemoglobin 15.6 gm/dL (13.5-18.0); Mean Cell Volume 97.8 fl (78-100); Mean Corpuscular Hemoglobin 33.8 pg (27-31); Mean Corpuscular Hgb Conc 34.5 g/dl (32-36); Mean Platelet Volume 10.6 fl (6.0-9.5); Neutrophil # 9.7 K/mm3 (1.3-6.0); Neutrophil % 80.7 % (42-75.0); Platelet Count 224 K/mm3 (150-450); Red Blood Count 4.62 M/mm3 (4.7-6.0); Red Cell Distribution Width 16.3 % (11.5-14.0)
[2017-10-27 05:47] LABS: Albumin * 1.8 gm/dl (3.4-5.0); Anion Gap 17.9 mmol/L (6.8-13.8); Calcium * 9.1 mg/dL (7.9-10.9); Carbon Dioxide 26.1 mmol/L (24-32.6); Total Protein 8.5 gm/dL (6.2-8.2)
[2017-10-27 05:48] LABS: Bilirubin, Total 2.3 mg/dL (0.0-1.1); Ca. Corrected For Albumin 10.5 mg/dL (8.4-10.2)
--- NOTE | 2017-10-27 06:29 | PN ---
Subjective - Date and Time Seen Date: 10/27/17 Time: 06:06 Subjective Narrative: Patient seen sitting up in bed, he said he dont have a cough, chills or fever. however he urinate often and the swelling in his leg have improved since adm. He still have a a wave of pain around his belly. His lactulose and Nexavar was discontinued per hemo/onco who spoke with Dr baeza. Objective - Review of Systems Generalized/Overall Review: Reports: No Symptoms Reported EENTM: Reports: No Symptoms Reported Respiratory: Reports: No Symptoms Reported Cardiac: Reports: No Symptoms Reported Abdominal: Reports: Abdominal Pain Genitourinary Symptoms: Reports: Frequency Musculoskeletal Complaints: Reports: No Symptoms Reported Neurological: Reports: Weakness Skin: Reports: Dryness Endocrine: Reports: No Symptoms Reported - Vitals Vitals: Last Vital Signs Temp 37.0 C 10/27/17 03:00 Pulse 78 10/27/17 03:00 Resp 18 10/27/17 03:00 BP 128/69 10/27/17 03:00 Pulse Ox 91 10/27/17 03:00 - Abnormal Lab Findings Abnormal Lab Findings: Abnormal Lab Results 10/26/17 10/27/17 10/27/17 Range/Units 05:10 05:00 05:36 WBC 12.0 H (4.0-10.5) K/mm3 RBC 4.62 L (4.7-6.0) M/mm3 MCH 33.8 H (27-31) pg RDW 16.3 H (11.5-14.0) % MPV 10.6 H (6.0-9.5) fl Immature Gran % (Auto) 0.50 H (0.001-0.429) % Immature Gran # (Auto) 0.06 H (0.000-0.0310) K/mm3 Neutrophils % 80.7 H (42-75.0) % Lymphocytes % 11.9 L (20-51) % Neutrophils # 9.7 H (1.3-6.0) K/mm3 Lymphocytes # 1.4 L (1.5-3.5) k/mm3 Potassium 4.7 H 5.0 H (3.4-4.6) mmol/L Anion Gap 14.1 H 17.9 H (6.8-13.8) mmol/L BUN 54 H 67 H (6-23) mg/dL Creatinine 2.27 H D 2.58 H (0.4-1.4) mg/dL Est GFR (Non-Af Amer) 30 L D 26 L (60-130) mL/min BUN/Creatinine Ratio 23.8 H 26.0 H (9.0-21.6) Random Glucose 145 H 128 H (70-110) mg/dL Calcium Adj for Albumin 10.9 H 10.5 H (8.4-10.2) mg/dL Total Bilirubin 2.3 H 2.3 H (0.0-1.1) mg/dL AST 662 H 518 H (0-48) U/L ALT 404 H 380 H (19-67) U/L Alkaline Phosphatase 518 H 465 H (50-170) U/L Total Protein 8.4 H 8.5 H (6.2-8.2) gm/dL Albumin 1.8 L 1.8 L (3.4-5.0) gm/dl - Exam Constitutional: Present: Alert, Oriented x3, Cooperative, No distress, Elderly, Morbidly obese, Looks Older than stated age ENT Exam: Present: hard of hearing Neck: Present: full range of motion Breasts: Present: Exam deferred Respiratory: Present: chest non-tender, no respiratory distress, decreased breath sounds, rhonchi Cardiovascular/Chest: Present: normal peripheral pulses, regular rate, rhythm, no gallop, no JVD, edema Abdomen: Present: Normal bowel sounds, obese, tender, distended /Rectal: Present: Exam deferred Extremity: Present: no calf tenderness, lower extremity edema, slow capillary refill, swelling Skin Exam: Present: warm/dry Lymphatic: Present: no adenopathy Neurologic: Present: alert, normal mood/affect, abnormal gait, depressed affect Appearance: Present: appropriate appearance, impaired recent memory, impaired remote memory Eye contact: Present: cooperative, good eye contact Thoughts: Present: no apparent hallucination, normal mood /affect Assessment/Plan Plan Narrative: CKD stage IV on adm Bun/Cre 37/1.49 on previous labs Bun/Cre 36/1.68--->43/1.83 Continue with NS @ 100ml/hr hydration Despite IVF rehydration Bun/Cre 54/2.27 --->67/2.58 and GFR 26 K+ gradually increasing as well today K+ 5.0 obtain Renal Ultrasound and UA Cirrhosis of the Liver On adm ALT/AST---> 221/343, since adm it has increased significantly AST/ALT/ Alk Phos--->533/280/556 respectively. 10/26/17 LFT continue to increased AST/ALT 662/404 10/27/17 AST/ALT 518/380 alk phos 465 pt LFT have been abnormal since 01/2017 Total bili 2.2---->2.3, Ammonia 64 --->17 resolved lactulose was DC Continue with home dose of Inderal 40mg BID and Aldactone 100mg daily. Pneumonia CXR:Hypoinflated lungs with bibasilar opacities, most likely atelectasis although multifocal pneumonia should be considered. F/U 6-8 weeks as potential nodule/neoplasm cannot be entirely rules out. pt with history of liver cancer possible due the distended abdomen pushing up on the lung or an extension of his liver cancer. Continue renal dose of Levaquin 750mg Q48hr continue with neb treatment influenza A & B negative WBC 13.1--->11.7--->12.0 trending up Procalcitonin 0.96 Pneumonia and legionella pending Hepatocellular carcinoma (HCC) Pt is been followed by farm equipment mechanic/ oncologist in [place] Dr Baeza spoke with Dr. gbison and Stop home dose of Nexavar 200mg and lactulose Zofran for nausea CHF Bilateral LE +4 pitting edema from foot up to thigh, remains just about the same BNP 1233 Lasix 20mg x1 given in ER 10/25/17 Lasix 60mg was DC Weight 131.1---->132.4 gradually increasing Code status:DNR VTE ppx:Lovenox 40mg Q24hr Time 20 minutes and case discussed with Dr Baeza - Problems/Diagnosis (1) Hepatic encephalopathy Problem: Chronic (2) Liver failure Problem: Acute Qualifiers: Liver failure chronicity: acute Hepatic coma status: without hepatic coma Qualified Code(s): K72.00 - Acute and subacute hepatic failure without coma (3) Liver malignancy Problem: Chronic Qualifiers: Liver malignancy type: unspecified liver malignancy Qualified Code(s): C22.9 - Malignant neoplasm of liver, not specified as primary or secondary (4) Multifocal pneumonia Problem: Acute (5) Renal insufficiency Problem: Acute (6) CKD (chronic kidney disease) Problem: Chronic
[2017-10-27] MEDS: PROPRANOLOL HCL 20 MG TABLET PO SCH ×2 (09:51→20:32)
[2017-10-27] MEDS: ALBUTEROL SULFATE/IPRATROPIUM 3 ML NEBU IH SCH ×4 (10:11→18:09)
[2017-10-27] MEDS ORDERED: NORMAL SALINE 1,000 ML IV ONE (11:39)
[2017-10-27] MEDS ORDERED: MORPHINE SULFATE 10 MG/0.5 ML SYRINGE PO PRN (13:00)
[2017-10-27] MEDS: ENOXAPARIN SODIUM 30 MG/0.3 ML SYRG SC SCH (14:19)
[2017-10-27 20:57] LABS: Urine Bilirubin Negative (NEGATIVE); Urine Blood Negative /ul (NEGATIVE); Urine Ketone Negative (NEGATIVE); Urine Nitrite Negative (NEGATIVE); Urine Protein 15 mg/dL (NEGATIVE); Urine Urobilinogen Normal (NORMAL); Urine pH 5.5 pH (5.0-7.0)
[2017-10-27 21:17] LABS: Urine Appearance Clear; Urine Bacteria TRACE; Urine Color Amber; Urine Hyaline Cast TRACE /LPF; Urine RBC None Seen /hpf (0-5); Urine WBC None Seen /hpf (0-5)
[2017-10-28] MEDS: ALBUTEROL SULFATE/IPRATROPIUM 3 ML NEBU IH SCH ×3 (06:14→14:22)
[2017-10-28] MEDS: PROPRANOLOL HCL 20 MG TABLET PO SCH (08:46)
[2017-10-28 10:27] VITALS: BP 132/61
[2017-10-28] MEDS ORDERED: ONDANSETRON HCL 8 MG TABLET PO PRN (13:09)
--- NOTE | 2017-10-28 13:15 | DS ---
(1) Hepatocellular carcinoma Problem: Chronic (2) Abnormal liver function tests Diagnosis(s): worsening of transaminases Problem: Chronic (3) Acute worsening of stage 3 chronic kidney disease Problem: Acute (4) Morbid obesity Problem: Chronic Description of Stay: DATE OF ADMISSION: 10/24/17. DATE OF DISCHARGE: 10/28/17. DIAGNOSTICS: RETROPERITONEAL ULTRASOUND: 10/27/17. DISCHARGE SUMMARY: Arias Rodriguez is a 71-year-old WM with a history of HCC[hepatocellular cancer] diagnosed in 07/2017 treated with sorafenib [Nexavar 200 mg twice a day] was admitted on 10/24/17 due to cough, SOB, and upper abdominal discomfort for the last few days. CXR showed bibasilar opacities consistent with atelectasis/ pneumonia. He was started on levofloxacin 750 mg IV every 48 hours. His other diagnoses included HTN, T2DM, CKD stage III, abnormal LFTs[01/2017], cirrhosis due to HORTON, H/O EtOH abuse, morbid obesity[BMI 42.3]. AST 343 ALT 222, ALK PHOS 601, TB 2.2 on admission. Ammonia level was elevated for which he was given lactulose. BUN/CR trended up during admission. He developed upper abdominal discomfort for which he was given oxycodone and ondansetron for nausea. Transaminases increased. Oxycodone switched to morphine sulfate 5 mg PO every 4 hours with improvement in pain. JIMMIE: 10/27/17: Dilated hypoechoic renal pelvises bilaterally with possible debris which is suboptimally evaluated. Consider contrast enhanced CT scan for further evaluation. Right jet was seen; the left jet was not seen. Prevoid volume was 500 mL the postvoid volume was 0 mL. Impression: Limited exam due to patient body habitus. Patient became weaker and there was deterioration in his labs. Patient and family decided on hospice and canceled appointment with the oncologist on . Several of his medications were DC'd; morphine and lorazepam were added to the regimen. Patient was discharged on 10/28/17 with [facility]. Procedures Performed: none Disposition: Hospice Home Condition: Undetermined Discharge Diet: Other - food as tolerated Discharge Level of Care:: Hospice - Home Prescriptions (Any new or edited meds): LORazepam [Ativan] 0.5 mg IJ Q2H #120 disp.syrin Morphine Sulfate 5 mg PO Q4H PRN #30 ml PRN Reason: Pain Ondansetron [Zofran Odt] 4 mg PO Q4H PRN #120 tab PRN Reason: Nausea Complete Home Medications List: Complete Home Medication List: Propranolol HCl 40 mg PO BID 05/21/16 Albuterol Sulfate 2.5 mg IH QID 05/23/16 Albuterol Sulfate [Proair Hfa] 1 puff IH Q4H PRN 02/01/17 LORazepam [Ativan] 0.5 mg IJ Q2H #120 disp.syrin 10/28/17 Morphine Sulfate 5 mg PO Q4H PRN #30 ml 10/28/17 Ondansetron [Zofran Odt] 4 mg PO Q4H PRN #120 tab 10/28/17
[2017-10-28] MEDS: ENOXAPARIN SODIUM 30 MG/0.3 ML SYRG SC SCH (13:39)
== END 2017-10-28 15:17 | disposition hospice, home (50) | DRG 435 ==
LOC: ER 12:01 → MS 13:57 → OBSVTOIN 10-25 11:05
PROVIDERS: ADMIT Internal Medicine; ATTEND Internal Medicine
DX: C22.9 Malignant neoplasm of liver, not specified as primary or secondary (principal); J18.9 Pneumonia, unspecified organism; N18.4 Chronic kidney disease, stage 4 (severe); Z68.41 Body mass index [BMI] 40.0-44.9, adult; K72.10 Chronic hepatic failure without coma; I12.9 Hypertensive chronic kidney disease with stage 1 through stage 4 chronic kidney disease, or unspecified chronic kidney disease; N18.3 Chronic kidney disease, stage 3 (moderate); E11.22 Type 2 diabetes mellitus with diabetic chronic kidney disease; E66.01 Morbid (severe) obesity due to excess calories; Z87.891 Personal history of nicotine dependence; Z85.828 Personal history of other malignant neoplasm of skin